=== PATIENT | male | born 1965 | race Caucasian/White ===

== ENCOUNTER → 2021-12-21 | Day surgery (SDC) | payer BC ==
[~2021-12-21] MED LIST: Sodium Chloride 0.9% 10 ML Syringe FLUSH PRN
== END ==
LOC: JP.SDS 06:27
PROVIDERS: ATTEND Ophthalmology
DX: H25.11 Age-related nuclear cataract, right eye (principal); E66.9 Obesity, unspecified; Z88.5 Allergy status to narcotic agent; Z87.891 Personal history of nicotine dependence; Z68.29 Body mass index [BMI] 29.0-29.9, adult
CPT/HCPCS: V2632

== ENCOUNTER 2022-01-04 07:02 | Day surgery (SDC) | payer BC ==
[2022-01-04] MEDS ORDERED: Sodium Chloride 0.9% 10 ML Syringe FLUSH PRN (07:30)
== END 2022-01-04 08:32 | disposition home or self-care (01) ==
LOC: JP.SDS 07:02
PROVIDERS: ATTEND Ophthalmology
DX: H25.12 Age-related nuclear cataract, left eye (principal)
CPT/HCPCS: 66984; J3490; V2632